=== PATIENT | male | born 1950 | race Caucasian/White ===

== ENCOUNTER → 2018-12-19 | Outpatient (CLI) | payer MEDICARE ==
[~2018-12-19] MED LIST: ALBU8.5H5 INH; CARB1TAB2 PO; CARB1TAB22 PO; DEXL60CA2 PO; FLUT12AE2 INH; LOSA1TAB19 PO; MULT-658 PO; OMEP20TA62 PO; OXYC5CAP2 PO
[2018-12-19 11:23] LABS: MICROSCOPIC NOT IND
[2018-12-19 11:27] LABS: BASOPHILS # (AUTO) 0.03 x10^3/uL (0-0.1); BASOPHILS % (AUTO) 1 % (0-1); EOSINOPHILS # (AUTO) 0.08 x10^3/uL (0-0.4); EOSINOPHILS % (AUTO) 2 % (1-7); LYMPHOCYTES # (AUTO) 1.03 x10^3/uL (1-3.4); LYMPHOCYTES % (AUTO) 20 % (22-44); MD NO; MEAN CORPUSCULAR HEMOGLOBIN 31.6 pg (27.5-34.5); MEAN CORPUSCULAR VOLUME 92.9 fL (81-97); MEAN PLATELET VOLUME 9.3 fL (7.4-10.4); MONOCYTES # (AUTO) 0.31 x10^3/uL (0.2-0.8); MONOCYTES % (AUTO) 6 % (2-9); NEUTROPHILS % (AUTO) 71 % (42-75); PLATELET COUNT 301 x10^3/uL (130-400); RED BLOOD COUNT 4.74 x10^6/uL (4.38-5.82); RED CELL DISTRIBUTION WIDTH 13.8 % (9.4-14.8)
[2018-12-19 11:28] LABS: CULTURE INDICATED? NO
[2018-12-19 11:29] LABS: INTERNATIONAL NORMALIZED RATIO 0.97 (0.93-1.1); PROTHROMBIN TIME 10.2 Seconds (9.6-11.5)
[2018-12-19 11:30] LABS: ALANINE AMINOTRANSFERASE 10 U/L (12-78); ALBUMIN 4.1 g/dL (3.4-5.0); ANION GAP 6 mmol/L (5-15); CALCIUM 8.8 mg/dL (8.5-10.1); CHLORIDE 109 mmol/L (98-107)
[2018-12-19 11:33] LABS: ALKALINE PHOSPHATASE 65 U/L (45-117); BILIRUBIN,TOTAL 0.8 mg/dL (0.2-1.0); CREATININE 1.06 mg/dL (0.7-1.3); TOTAL PROTEIN 7.4 g/dL (6.4-8.2)
== END | disposition home or self-care (01) ==
LOC: STAR 09:54
PROVIDERS: ATTEND Neurological Surgery
DX: Z01.818 Encounter for other preprocedural examination (principal); M47.816 Spondylosis without myelopathy or radiculopathy, lumbar region; M25.78 Osteophyte, vertebrae; M43.5X6 Other recurrent vertebral dislocation, lumbar region; M41.84 Other forms of scoliosis, thoracic region; M41.86 Other forms of scoliosis, lumbar region; J98.4 Other disorders of lung; I10 Essential (primary) hypertension; Z85.46 Personal history of malignant neoplasm of prostate; Z79.899 Other long term (current) drug therapy; Z98.890 Other specified postprocedural states
CPT/HCPCS: 36415; 71046; 72110; 80053; 81003; 85025; 85610; 85730; 93005

== ENCOUNTER 2018-12-27 08:57 | Observation (INO) | payer MEDICARE ==
[~2018-12-27] VITALS: Ht 177.8 cm; Wt 77.2 kg
[~2018-12-27 08:57] MED LIST changes: +BACITRACIN 50,000 UNIT ONE; +BUPIVACAINE/PF 0.25% ONE; +EPINEPHRINE 1 MG/ML, 1ML ONE; +MICROFIBRILLAR COLLAGEN 1 GM TP ONE; +THROMBIN 20,000 UNIT VIAL TP ONE; +THROMBIN 5,000 UNIT VIAL TP ONE; +VANCOMYCIN 1,000 MG ONE
[2018-12-27] MEDS ORDERED: LACTATED RINGERS 1,000 ML IV SCH (09:22)
[2018-12-27 09:25] VITALS: BP 157/89
[2018-12-27] MEDS ORDERED: MIDAZOLAM 1 MG/ML, 2ML ONE (10:58)
[2018-12-27] MEDS ORDERED: BUPIVACAINE/PF-EPI 0.25% 1:200K INFIL ONE ×2 (12:39→12:40)
[2018-12-27] MEDS ORDERED: FENTANYL PF 250 MCG/5ML ONE (12:49)
[2018-12-27] MEDS ORDERED: FENTANYL PF 100 MCG/2ML ONE (12:55)
[2018-12-27] MEDS ORDERED: methylPREDNISolone SOD SUCC 125 MG/2 ML ONE (12:55)
[2018-12-27] MEDS ORDERED: hydrALAzine 20 MG/ML, 1ML IV PRN (13:00)
[2018-12-27] MEDS ORDERED: OXYcodone 5 MG/5 ML ORAL.SOL UDC PO PRN (13:00)
[2018-12-27] MEDS ORDERED: FENTANYL PF 100 MCG/2ML IV PRN (13:00)
[2018-12-27] MEDS ORDERED: HYDROmorphone 1 MG/ML, 1ML INJ IV PRN (13:00)
[2018-12-27] MEDS ORDERED: PROMETHAZINE 25 MG/ML, 1ML IV PRN (13:00)
[2018-12-27] MEDS ORDERED: METOCLOPRAMIDE 5 MG/ML, 2ML IV PRN (13:00)
[2018-12-27] MEDS ORDERED: ALBUTEROL SULFATE 2.5 MG/3 ML NPPB PRN (13:00)
[2018-12-27] MEDS ORDERED: MEPERIDINE/PF 25MG/0.5ML IVPush PRN (13:00)
[2018-12-27] MEDS ORDERED: KETOROLAC 30 MG/1 ML IV PRN (13:00)
[2018-12-27] MEDS ORDERED: LABETALOL 5MG/ML, 20ML IV PRN (13:00)
[2018-12-27] MEDS ORDERED: ONDANSETRON 2MG/ML, 2ML IVPush PRN ×2 (13:00→16:30)
[2018-12-27] MEDS ORDERED: CEFAZOLIN 1,000 MG ONE (14:43)
[2018-12-27] MEDS ORDERED: ONDANSETRON 2MG/ML, 2ML ONE (14:43)
[2018-12-27] MEDS ORDERED: NEOSTIGMINE 1 MG/ML, 10ML ONE (14:43)
[2018-12-27] MEDS ORDERED: SUCCINYLCHOLINE 20 MG/ML, 10ML ONE (14:43)
[2018-12-27] MEDS ORDERED: PROPOFOL 10 MG/ML, 20ML ONE (14:43)
[2018-12-27] MEDS ORDERED: DEXAMETHASONE 4 MG/ML, 1ML ONE (14:43)
[2018-12-27] MEDS ORDERED: GLYCOPYRROLATE 0.2MG/1ML, 5ML ONE (14:43)
[2018-12-27] MEDS ORDERED: ROCURONIUM 10MG/ML,5ML ONE (14:43)
[2018-12-27] MEDS ORDERED: PHARMACY MAY ADJ FOR RENAL FX MC PRN (16:30)
[2018-12-27] MEDS ORDERED: PROMETHAZINE 25 MG/ML, 1ML IM PRN (16:30)
[2018-12-27] MEDS ORDERED: OXYcodone/APAP 5/325MG TABLET PO PRN (16:30)
[2018-12-27] MEDS ORDERED: SENNA/DOCUSATE TABLET PO PRN (16:30)
[2018-12-27] MEDS ORDERED: DIPHENHYDRAMINE 50 MG/ML, 1ML IVPush PRN (16:30)
[2018-12-27] MEDS ORDERED: MAGNESIUM HYDROXIDE 8%, 30ML UDC PO PRN (16:30)
[2018-12-27] MEDS ORDERED: HYDROmorphone 1 MG/ML, 1ML INJ IVPush PRN (16:30)
[2018-12-27] MEDS ORDERED: BISACODYL 10 MG SUPP PR PRN (16:30)
[2018-12-27] MEDS ORDERED: TIZANIDINE 4MG TABLET PO PRN (16:30)
[2018-12-27] MEDS: NS + 20MEQ KCL 1,000 ML IV SCH (19:20)
[2018-12-27 19:34] VITALS: BP 144/73
[2018-12-27] MEDS: CEFAZOLIN PMX 1GM/50ML 50 ML IVPB SCH (20:30)
[2018-12-27] MEDS: CARBIDOPA/LEVODOPA 25 MG/100 MG TABLET PO SCH (20:30)
[2018-12-27] MEDS: SODIUM CHLORIDE FLUSH 10ML SYR IVF SCH (20:30)
[2018-12-27 23:51] VITALS: BP 138/77
[2018-12-28 04:21] VITALS: BP 143/86
[2018-12-28] MEDS: CEFAZOLIN PMX 1GM/50ML 50 ML IVPB SCH (04:26)
[2018-12-28 06:35] VITALS: BP 123/72
[2018-12-28] MEDS ORDERED: HYDROCHLOROTHIAZIDE 12.5 MG CAPSULE PO SCH (09:00)
[2018-12-28] MEDS ORDERED: LOSARTAN 50MG TABLET PO SCH (09:00)
[2018-12-28] MEDS ORDERED: OMEPRAZOLE 20 MG CAPSULE.DR PO SCH (09:00)
[2018-12-28] MEDS ORDERED: MULTIVITAMIN 1 TABLET PO SCH (09:00)
[2018-12-28] MEDS: CARBIDOPA/LEVODOPA 25 MG/100 MG TABLET PO SCH (09:07)
[2018-12-28] MEDS: NS + 20MEQ KCL 1,000 ML IV SCH (09:07)
[2018-12-28] MEDS: SODIUM CHLORIDE FLUSH 10ML SYR IVF SCH (09:07)
== END 2018-12-28 10:00 | disposition home or self-care (01) ==
LOC: OUT 08:57 → ORIP 16:34 → 4NOR 18:10 → DCLOUNGE 12-28 09:41
PROVIDERS: ADMIT Neurological Surgery; ATTEND Neurological Surgery
DX: M48.061 Spinal stenosis, lumbar region without neurogenic claudication (principal); M54.16 Radiculopathy, lumbar region; I10 Essential (primary) hypertension; K21.9 Gastro-esophageal reflux disease without esophagitis; G20 Parkinson's disease; Z85.46 Personal history of malignant neoplasm of prostate; Z98.890 Other specified postprocedural states
CPT/HCPCS: 63047; 63048; 72100; 96365; 96366; G0378; J0171; J0330; J0690; J1100; J2250; J2405; J2704; J2710; J2930; J3010; J3370; J3480; J3490

== ENCOUNTER → 2020-03-19 | Outpatient (CLI) | payer MEDICARE ==
[~2020-03-19] MED LIST changes: -BACITRACIN 50,000 UNIT ONE; -BUPIVACAINE/PF 0.25% ONE; -EPINEPHRINE 1 MG/ML, 1ML ONE; +HYDR12.517 PO; +LOSA50TA14 PO; -MICROFIBRILLAR COLLAGEN 1 GM TP ONE; -THROMBIN 20,000 UNIT VIAL TP ONE; -THROMBIN 5,000 UNIT VIAL TP ONE; +TRAM50TA2 PO; -VANCOMYCIN 1,000 MG ONE
[2020-03-19 16:47] LABS: BASOPHILS # (AUTO) 0.02 x10^3/uL (0-0.1); BASOPHILS % (AUTO) 0 % (0-1); EOSINOPHILS # (AUTO) 0.01 x10^3/uL (0-0.4); EOSINOPHILS % (AUTO) 0 % (1-7); LYMPHOCYTES # (AUTO) 1.07 x10^3/uL (1-3.4); LYMPHOCYTES % (AUTO) 14 % (22-44); MD NO; MEAN CORPUSCULAR HEMOGLOBIN 31.3 pg (27.5-34.5); MEAN CORPUSCULAR HGB CONC 33.4 g/dL (33.2-36.2); MEAN CORPUSCULAR VOLUME 93.7 fL (81-97); MEAN PLATELET VOLUME 8.9 fL (7.4-10.4); MONOCYTES # (AUTO) 0.48 x10^3/uL (0.2-0.8); MONOCYTES % (AUTO) 6 % (2-9); NEUTROPHILS # (AUTO) 6.27 x10^3/uL (1.8-6.8); NEUTROPHILS % (AUTO) 80 % (42-75); PLATELET COUNT 300 x10^3/uL (130-400); RED BLOOD COUNT 4.62 x10^6/uL (4.38-5.82); RED CELL DISTRIBUTION WIDTH 13.5 % (9.4-14.8)
[2020-03-19 16:58] LABS: ALANINE AMINOTRANSFERASE 8 U/L (12-78); ALBUMIN 4.1 g/dL (3.4-5.0); ANION GAP 6 mmol/L (5-15); CHLORIDE 108 mmol/L (98-107); CREATININE 1.22 mg/dL (0.7-1.3)
[2020-03-19 17:00] LABS: ALKALINE PHOSPHATASE 70 U/L (45-117); BILIRUBIN,TOTAL 0.8 mg/dL (0.2-1.0); TOTAL PROTEIN 7.3 g/dL (6.4-8.2)
== END | disposition home or self-care (01) ==
LOC: STAR 15:37
PROVIDERS: ATTEND Orthopaedic Surgery
DX: Z01.818 Encounter for other preprocedural examination (principal); M25.551 Pain in right hip; R94.31 Abnormal electrocardiogram [ECG] [EKG]
CPT/HCPCS: 36415; 80053; 85025; 87081; 93005

== ENCOUNTER 2020-03-31 08:17 | Day surgery (SDC) | payer MEDICARE ==
[~2020-03-31] VITALS: Ht 177.8 cm; Wt 66.4 kg
[~2020-03-31 08:17] MED LIST changes: +BUPIVACAINE/EPI 0.5% 1:200K ONE
[2020-03-31 08:42] VITALS: BP 107/73
[2020-03-31] MEDS ORDERED: LACTATED RINGERS 1,000 ML IV SCH (09:00)
[2020-03-31] MEDS ORDERED: CHLORHEXIDINE 15 ML UDC MM ONE (09:00)
[2020-03-31] MEDS ORDERED: FENTANYL PF 250 MCG/5ML ONE (09:37)
[2020-03-31] MEDS ORDERED: BACITRACIN 50,000 UNIT ONE (09:45)
[2020-03-31] MEDS ORDERED: PROPOFOL 10 MG/ML, 20ML ONE ×2 (10:29)
[2020-03-31] MEDS ORDERED: CEFAZOLIN 1,000 MG ONE (10:29)
[2020-03-31] MEDS ORDERED: ACETAMINOPHEN 325 MG TABLET PO PRN ×2 (11:00→11:30)
[2020-03-31] MEDS ORDERED: FENTANYL PF 100 MCG/2ML IV PRN (11:00)
[2020-03-31] MEDS ORDERED: PROMETHAZINE 25 MG/ML, 1ML IM PRN (11:30)
[2020-03-31] MEDS ORDERED: HYDROmorphone 1 MG/ML, 1ML INJ IM PRN (11:30)
[2020-03-31] MEDS ORDERED: KETOROLAC 30 MG/1 ML IVPush SCH (11:30)
[2020-03-31] MEDS ORDERED: ONDANSETRON 2MG/ML, 2ML IVPush PRN (11:30)
[2020-03-31] MEDS ORDERED: HYDROcodone/APAP 5/325 TABLET PO PRN (11:30)
[2020-03-31] MEDS ORDERED: CARBIDOPA/LEVODOPA 25 MG/100 MG TABLET PO ONE (12:00)
[2020-03-31] MEDS ORDERED: LABETALOL 5MG/ML, 20ML IVPush STA (12:04)
[2020-03-31] MEDS ORDERED: hydrALAzine 20 MG/ML, 1ML ONE (12:35)
[2020-03-31] MEDS ORDERED: hydrALAzine 20 MG/ML, 1ML IV ONE (13:00)
== END 2020-03-31 14:05 | disposition home or self-care (01) ==
LOC: OUT 08:17
PROVIDERS: ATTEND Orthopaedic Surgery
DX: D17.23 Benign lipomatous neoplasm of skin and subcutaneous tissue of right leg (principal); Z11.59 Encounter for screening for other viral diseases; G20 Parkinson's disease; I10 Essential (primary) hypertension; Z79.899 Other long term (current) drug therapy; Z82.49 Family history of ischemic heart disease and other diseases of the circulatory system
CPT/HCPCS: 27328; 87635; 88304; J0360; J0690; J2704; J3010; J7120

== ENCOUNTER → 2020-07-17 | Outpatient (CLI) | payer MEDICARE ==
[~2020-07-17] MED LIST changes: +AMIT10TA PO; -BUPIVACAINE/EPI 0.5% 1:200K ONE; +miralax PO; +percocet PO
[2020-07-17 12:04] LABS: MICROSCOPIC NOT IND
[2020-07-17 12:04] LABS: BASOPHILS % (AUTO) 0 % (0-1); EOSINOPHILS % (AUTO) 1 % (1-7); LYMPHOCYTES % (AUTO) 21 % (22-44); MEAN CORPUSCULAR HEMOGLOBIN 31.3 pg (27.5-34.5); MEAN CORPUSCULAR HGB CONC 32.9 g/dL (33.2-36.2); MEAN PLATELET VOLUME 8.5 fL (7.4-10.4); MONOCYTES % (AUTO) 8 % (2-9); NEUTROPHILS % (AUTO) 70 % (42-75); PLATELET COUNT 299 x10^3/uL (130-400); RED BLOOD COUNT 4.68 x10^6/uL (4.38-5.82); RED CELL DISTRIBUTION WIDTH 13.5 % (9.4-14.8)
[2020-07-17 12:07] LABS: MD NO
[2020-07-17 12:13] LABS: ALBUMIN 3.8 g/dL (3.4-5.0); CALCIUM 8.8 mg/dL (8.5-10.1); CHLORIDE 107 mmol/L (98-107); INTERNATIONAL NORMALIZED RATIO 0.96 (0.93-1.1); PROTHROMBIN TIME 10.2 Seconds (9.6-11.5)
[2020-07-17 12:19] LABS: ALANINE AMINOTRANSFERASE 18 U/L (12-78); ALKALINE PHOSPHATASE 79 U/L (45-117); BILIRUBIN,TOTAL 0.4 mg/dL (0.2-1.0); CREATININE 1.06 mg/dL (0.7-1.3); TOTAL PROTEIN 7.1 g/dL (6.4-8.2)
[2020-07-17 12:22] LABS: ANION GAP 5 mmol/L (5-15)
== END | disposition home or self-care (01) ==
LOC: STAR 09:46
PROVIDERS: ATTEND Neurological Surgery
DX: Z01.818 Encounter for other preprocedural examination (principal); M48.061 Spinal stenosis, lumbar region without neurogenic claudication; M51.36 Other intervertebral disc degeneration, lumbar region; I25.2 Old myocardial infarction
CPT/HCPCS: 36415; 71046; 80053; 81003; 85025; 85610; 85730; 93005

== ENCOUNTER → 2020-07-23 | Outpatient (CLI) | payer MEDICARE | END | disposition home or self-care (01) | LOC: STAR 14:32 | PROVIDERS: ATTEND Anesthesiology | DX: Z20.828 Contact with and (suspected) exposure to other viral communicable diseases (principal) | CPT/HCPCS: 87635 ==

== ENCOUNTER 2020-07-28 06:41 | Inpatient (IN) | payer MEDICARE ==
[~2020-07-28] VITALS: Ht 172.7 cm; Wt 64.0 kg
[2020-07-28 07:57] VITALS: BP 142/85
[2020-07-28] MEDS ORDERED: CHLORHEXIDINE 15 ML UDC MM ONE (08:00)
[2020-07-28] MEDS ORDERED: LACTATED RINGERS 1,000 ML IV SCH (08:00)
[2020-07-28] MEDS ORDERED: LABETALOL 5MG/ML, 20ML IV PRN (08:30)
[2020-07-28] MEDS ORDERED: FENTANYL PF 100 MCG/2ML IV PRN (08:30)
[2020-07-28] MEDS ORDERED: hydrALAzine 20 MG/ML, 1ML IV PRN (08:30)
[2020-07-28] MEDS ORDERED: OXYcodone 5 MG/5 ML ORAL.SOL UDC PO PRN (08:30)
[2020-07-28] MEDS ORDERED: HYDROcodone/APAP 7.5-325MG/15ML UDC PO PRN (08:30)
[2020-07-28] MEDS ORDERED: DIPHENHYDRAMINE 50 MG/ML, 1ML IVPush PRN ×3 (08:30→14:30)
[2020-07-28] MEDS ORDERED: PROPOFOL 50 ML ONE ×2 (09:23→12:41)
[2020-07-28] MEDS ORDERED: FENTANYL PF 250 MCG/5ML ONE ×2 (09:23→12:41)
[2020-07-28] MEDS ORDERED: EPINEPHRINE 1 MG/ML, 1ML INFIL ONE (11:05)
[2020-07-28] MEDS ORDERED: BUPIVACAINE/PF 0.5% INFIL ONE (11:05)
[2020-07-28] MEDS ORDERED: BACITRACIN 50,000 UNIT IRRIG ONE (11:06)
[2020-07-28] MEDS ORDERED: ONDANSETRON 2MG/ML, 2ML ONE (13:40)
[2020-07-28] MEDS ORDERED: SUCCINYLCHOLINE 20 MG/ML, 10ML ONE (13:40)
[2020-07-28] MEDS ORDERED: ROCURONIUM 10MG/ML,5ML ONE (13:40)
[2020-07-28] MEDS ORDERED: CEFAZOLIN 1,000 MG ONE (13:40)
[2020-07-28] MEDS ORDERED: PROPOFOL 10 MG/ML, 20ML ONE (13:40)
[2020-07-28] MEDS ORDERED: GLYCOPYRROLATE 0.2MG/1ML, 5ML ONE (13:40)
[2020-07-28] MEDS ORDERED: NEOSTIGMINE 1 MG/ML, 10ML ONE (13:40)
[2020-07-28] MEDS ORDERED: DEXAMETHASONE 4 MG/ML, 1ML ONE (13:40)
[2020-07-28] MEDS ORDERED: ONDANSETRON 2MG/ML, 2ML IVPush PRN (14:30)
[2020-07-28] MEDS ORDERED: TIZANIDINE 4MG TABLET PO PRN (14:30)
[2020-07-28] MEDS ORDERED: BISACODYL 10 MG SUPP PR PRN (14:30)
[2020-07-28] MEDS ORDERED: DIAZEPAM 5 MG TABLET PO PRN (14:30)
[2020-07-28] MEDS ORDERED: PROMETHAZINE 25 MG/ML, 1ML IM PRN (14:30)
[2020-07-28] MEDS ORDERED: CARBIDOPA/LEVODOPA 25 MG/100 MG TABLET PO SCH (14:30)
[2020-07-28] MEDS ORDERED: HYDROmorphone 1 MG/ML, 1ML INJ IVPush PRN (14:30)
[2020-07-28] MEDS ORDERED: MEPERIDINE/PF 100 MG/ML IM PRN (14:30)
[2020-07-28] MEDS ORDERED: MAGNESIUM HYDROXIDE 8%, 30ML UDC PO PRN (14:30)
[2020-07-28] MEDS ORDERED: PHARMACY MAY ADJ FOR RENAL FX MC PRN (14:30)
[2020-07-28] MEDS ORDERED: METHOCARBAMOL 1,000 MG in DEXTROSE 5% 100 ML IV ONE (14:30)
[2020-07-28] MEDS ORDERED: HYDROmorphone PCA 30 MG/30 ML IV PRN (14:30)
[2020-07-28] MEDS: CARBIDOPA/LEVODOPA 25 MG/100 MG TABLET PO SCH ×3 (15:01→21:46)
[2020-07-28] MEDS ORDERED: HYDROmorphone 1 MG/ML, 1ML INJ ONE (15:02)
[2020-07-28] MEDS ORDERED: OXYcodone 5 MG/5 ML ORAL.SOL UDC ONE (15:03)
[2020-07-28] MEDS: HYDROmorphone 1 MG/ML, 1ML INJ IVPush PRN ×2 (15:04→15:34)
[2020-07-28 16:15] VITALS: BP 131/83
[2020-07-28] MEDS: NS + 20MEQ KCL 1,000 ML IV SCH (20:36)
[2020-07-28 20:54] VITALS: BP 116/78
[2020-07-28] MEDS: CEFAZOLIN PMX 1GM/50ML 50 ML IVPB SCH (21:46)
[2020-07-28] MEDS: SODIUM CHLORIDE FLUSH 10ML SYR IVF SCH (21:47)
[2020-07-29 00:43] VITALS: BP 93/60
[2020-07-29] MEDS: CARBIDOPA/LEVODOPA 25 MG/100 MG TABLET PO SCH ×8 (01:09→21:34)
[2020-07-29 04:33] VITALS: BP 118/77
[2020-07-29] MEDS: OXYcodone/APAP 10/325MG TABLET PO PRN ×2 (04:34→15:29)
[2020-07-29 05:28] LABS: BASOPHILS % (AUTO) 1 % (0-1); EOSINOPHILS % (AUTO) 0 % (1-7); LYMPHOCYTES % (AUTO) 10 % (22-44); MEAN CORPUSCULAR HEMOGLOBIN 32.6 pg (27.5-34.5); MEAN PLATELET VOLUME 8.5 fL (7.4-10.4); MONOCYTES % (AUTO) 10 % (2-9); NEUTROPHILS % (AUTO) 79 % (42-75); PLATELET COUNT 260 x10^3/uL (130-400); RED BLOOD COUNT 3.68 x10^6/uL (4.38-5.82); RED CELL DISTRIBUTION WIDTH 13.2 % (9.4-14.8)
[2020-07-29 05:40] LABS: ANION GAP 5 mmol/L (5-15); CALCIUM 8.2 mg/dL (8.5-10.1); CHLORIDE 107 mmol/L (98-107); CREATININE 1.03 mg/dL (0.7-1.3)
[2020-07-29 05:42] LABS: MD NO
[2020-07-29] MEDS: CEFAZOLIN PMX 1GM/50ML 50 ML IVPB SCH (06:32)
[2020-07-29 08:00] VITALS: BP 123/70
[2020-07-29] MEDS: SODIUM CHLORIDE FLUSH 10ML SYR IVF SCH ×2 (09:00→21:00)
[2020-07-29] MEDS: HYDROCHLOROTHIAZIDE 12.5 MG CAPSULE PO SCH (09:00)
[2020-07-29] MEDS: LOSARTAN 50MG TABLET PO SCH (09:00)
[2020-07-29] MEDS: OMEPRAZOLE 20 MG CAPSULE.DR PO SCH (09:00)
[2020-07-29] MEDS: SENNA/DOCUSATE TABLET PO SCH (09:38)
[2020-07-29] MEDS ORDERED: HYDROmorphone 1 MG/ML, 1ML INJ IVPush PRN (10:30)
[2020-07-29] MEDS: NS + 20MEQ KCL 1,000 ML IV SCH (10:38)
[2020-07-29 12:16] VITALS: BP 121/69
[2020-07-29 18:58] VITALS: BP 132/77
[2020-07-30] MEDS: NS + 20MEQ KCL 1,000 ML IV SCH ×2 (00:33→14:08)
[2020-07-30] MEDS: CARBIDOPA/LEVODOPA 25 MG/100 MG TABLET PO SCH ×8 (00:33→21:24)
[2020-07-30 01:39] VITALS: BP 115/72
[2020-07-30 05:58] LABS: BASOPHILS % (AUTO) 0 % (0-1); EOSINOPHILS % (AUTO) 1 % (1-7); LYMPHOCYTES % (AUTO) 6 % (22-44); MEAN PLATELET VOLUME 8.7 fL (7.4-10.4); MONOCYTES % (AUTO) 8 % (2-9); NEUTROPHILS % (AUTO) 86 % (42-75); PLATELET COUNT 230 x10^3/uL (130-400); RED BLOOD COUNT 3.63 x10^6/uL (4.38-5.82); RED CELL DISTRIBUTION WIDTH 13.2 % (9.4-14.8)
[2020-07-30 06:00] LABS: MD NO
[2020-07-30 06:10] LABS: ANION GAP 9 mmol/L (5-15); CALCIUM 8.4 mg/dL (8.5-10.1); CHLORIDE 107 mmol/L (98-107); CREATININE 0.81 mg/dL (0.7-1.3)
[2020-07-30] MEDS: LOSARTAN 50MG TABLET PO SCH (08:52)
[2020-07-30] MEDS: SENNA/DOCUSATE TABLET PO SCH (08:52)
[2020-07-30] MEDS: OMEPRAZOLE 20 MG CAPSULE.DR PO SCH (08:53)
[2020-07-30] MEDS: SODIUM CHLORIDE FLUSH 10ML SYR IVF SCH ×2 (08:53→21:24)
[2020-07-30] MEDS: HYDROCHLOROTHIAZIDE 12.5 MG CAPSULE PO SCH (08:53)
[2020-07-30 15:27] VITALS: BP 146/89
[2020-07-30 20:04] VITALS: BP 136/77
[2020-07-31] MEDS: CARBIDOPA/LEVODOPA 25 MG/100 MG TABLET PO SCH ×9 (00:55→21:16)
[2020-07-31] MEDS: NS + 20MEQ KCL 1,000 ML IV SCH ×2 (02:40→15:33)
[2020-07-31 03:00] VITALS: BP 120/70
[2020-07-31 06:09] LABS: BASOPHILS % (AUTO) 0 % (0-1); EOSINOPHILS % (AUTO) 2 % (1-7); LYMPHOCYTES % (AUTO) 13 % (22-44); MEAN CORPUSCULAR HEMOGLOBIN 31.9 pg (27.5-34.5); MEAN CORPUSCULAR HGB CONC 34.4 g/dL (33.2-36.2); MEAN PLATELET VOLUME 9.1 fL (7.4-10.4); MONOCYTES % (AUTO) 8 % (2-9); NEUTROPHILS % (AUTO) 77 % (42-75); PLATELET COUNT 229 x10^3/uL (130-400); RED BLOOD COUNT 3.57 x10^6/uL (4.38-5.82); RED CELL DISTRIBUTION WIDTH 13.2 % (9.4-14.8)
[2020-07-31 06:14] LABS: MD NO
[2020-07-31 06:27] LABS: CHLORIDE 104 mmol/L (98-107)
[2020-07-31 06:34] VITALS: BP 136/75
[2020-07-31 06:34] LABS: ANION GAP 5 mmol/L (5-15); CALCIUM 8.5 mg/dL (8.5-10.1)
[2020-07-31] MEDS: OMEPRAZOLE 20 MG CAPSULE.DR PO SCH (08:51)
[2020-07-31] MEDS: LOSARTAN 50MG TABLET PO SCH (08:51)
[2020-07-31] MEDS: SENNA/DOCUSATE TABLET PO SCH (08:51)
[2020-07-31] MEDS: HYDROCHLOROTHIAZIDE 12.5 MG CAPSULE PO SCH (08:51)
[2020-07-31] MEDS: SODIUM CHLORIDE FLUSH 10ML SYR IVF SCH ×2 (08:52→21:00)
[2020-07-31] MEDS ORDERED: ACETAMINOPHEN 325 MG TABLET PO PRN (09:00)
[2020-07-31 12:49] LABS: MICROSCOPIC AUTO
[2020-07-31 15:23] VITALS: BP 118/64
[2020-07-31 20:44] VITALS: BP 100/66
[2020-08-01] MEDS: CARBIDOPA/LEVODOPA 25 MG/100 MG TABLET PO SCH ×3 (00:23→06:30)
[2020-08-01 00:58] VITALS: BP 116/67
[2020-08-01] MEDS: NS + 20MEQ KCL 1,000 ML IV SCH (03:21)
[2020-08-01 06:11] LABS: BASOPHILS % (AUTO) 0 % (0-1); EOSINOPHILS % (AUTO) 3 % (1-7); LYMPHOCYTES % (AUTO) 12 % (22-44); MEAN CORPUSCULAR HEMOGLOBIN 31.6 pg (27.5-34.5); MEAN CORPUSCULAR HGB CONC 34.2 g/dL (33.2-36.2); MEAN PLATELET VOLUME 8.6 fL (7.4-10.4); MONOCYTES % (AUTO) 9 % (2-9); NEUTROPHILS % (AUTO) 76 % (42-75); PLATELET COUNT 262 x10^3/uL (130-400); RED BLOOD COUNT 3.48 x10^6/uL (4.38-5.82); RED CELL DISTRIBUTION WIDTH 13.1 % (9.4-14.8)
[2020-08-01 06:17] LABS: MD NO
[2020-08-01 06:27] LABS: ANION GAP 6 mmol/L (5-15); CALCIUM 8.7 mg/dL (8.5-10.1); CHLORIDE 105 mmol/L (98-107); CREATININE 0.94 mg/dL (0.7-1.3)
[2020-08-01] MEDS: CARBIDOPA/LEVODOPA 25 MG/100 MG TABLET HOMEMEDPO SCH ×2 (10:00→12:05)
[2020-08-01 10:13] VITALS: BP 145/72
[2020-08-01] MEDS: SODIUM CHLORIDE FLUSH 10ML SYR IVF SCH (10:17)
[2020-08-01] MEDS: SENNA/DOCUSATE TABLET PO SCH (10:18)
[2020-08-01] MEDS ORDERED: POTASSIUM CHLORIDE 20 MEQ TAB.ER.PRT PO SCH (11:30)
[2020-08-02] MEDS ORDERED: LOSARTAN 50MG TABLET HOMEMEDPO SCH (09:00)
[2020-08-02] MEDS ORDERED: HYDROCHLOROTHIAZIDE 12.5 MG CAPSULE HOMEMEDPO SCH (09:00)
[2020-08-02] MEDS ORDERED: OMEPRAZOLE 20 MG CAPSULE.DR HOMEMEDPO SCH (09:00)
[2020-08-02] MEDS ORDERED: POTASSIUM CHLORIDE 20 MEQ TAB.ER.PRT PO SCH (09:00)
== END 2020-08-01 13:10 | disposition home health service (06) | DRG 460 ==
LOC: OUT 06:41 → ORIP 14:09 → 4NE 16:09
PROVIDERS: ADMIT Neurological Surgery; ATTEND Neurological Surgery
PROC: 0SG00AJ Fusion of Lumbar Vertebral Joint with Interbody Fusion Device, Posterior Approach, Anterior Column, Open Approach (ICD-10-PCS; 2020-07-28)
PROC: 0SG30AJ Fusion of Lumbosacral Joint with Interbody Fusion Device, Posterior Approach, Anterior Column, Open Approach (ICD-10-PCS; 2020-07-28)
PROC: 8E0W0CZ Robotic Assisted Procedure of Trunk Region, Open Approach (ICD-10-PCS; 2020-07-28)
PROC: 01NB0ZZ Release Lumbar Nerve, Open Approach (ICD-10-PCS; principal; 2020-07-28 09:30)
PROC: 0T9B70Z Drainage of Bladder with Drainage Device, Via Natural or Artificial Opening (ICD-10-PCS; 2020-07-31)
DX: M48.061 Spinal stenosis, lumbar region without neurogenic claudication (principal); M47.816 Spondylosis without myelopathy or radiculopathy, lumbar region
CPT/HCPCS: 36415; 72100; 72131; 80048; 81001; 85025; 87086; 95938; 95941; C1713; C1776; G0378; J0171; J0690; J1100; J1170; J2405; J2704; J2710; J3010; J3370; J3480; C1762; J0330; J2800; J7120